=== PATIENT | female | born 1965 | race Caucasian/White ===

== ENCOUNTER 2021-08-06 20:34 | Emergency (ER) | payer OTHER ==
[~2021-08-06] VITALS: Ht 165.1 cm; Wt 122.5 kg
[2021-08-06] MEDS ORDERED: PAIN RELIEF325 MG PO (22:37)
[2021-08-06] MEDS ORDERED: MINTOX PLUS TA1 EACH PO (22:38)
[2021-08-06] MEDS ORDERED: MAGNESIUM HYDROXIDE PO (22:38)
[2021-08-06] MEDS ORDERED: GENTLE LAXATIVE10 MG RECTAL (22:39)
[2021-08-06] MEDS ORDERED: DULCOLAX STOOL100 M1 RECTAL (22:40)
[2021-08-06] MEDS ORDERED: SENNA PLUS TAB1 EACH PO (22:41)
[2021-08-06] MEDS ORDERED: PYRIDOXINE HCL25 MG PO (22:42)
[2021-08-06] MEDS ORDERED: DETROL2 M1 PO (22:42)
[2021-08-06] MEDS ORDERED: TIZANIDINE HCL4 M2 PO (22:43)
[2021-08-06] MEDS ORDERED: THIAMINE PO (22:44)
[2021-08-06] MEDS ORDERED: PYRIDOXINE HCL50 MG PO (22:52)
[2021-08-06] MEDS ORDERED: NAPROSYN500 MG PO (22:53)
[2021-08-06] MEDS ORDERED: MELATONIN3 M1 PO (22:54)
[2021-08-06] MEDS ORDERED: LORATIDINE 10 M10 M1 PO (22:54)
[2021-08-06] MEDS ORDERED: LIDODERM1 EACH TOP (22:55)
[2021-08-06] MEDS ORDERED: VITAMIN D325 MC3 PO (22:56)
[2021-08-06] MEDS ORDERED: BACLOFEN 10MG T10 MG PO (22:56)
[2021-08-06] MEDS ORDERED: MIRALAX119 GM PO (22:57)
[2021-08-06] MEDS ORDERED: HYDROXYZINE HCL25 M2 PO (22:58)
[2021-08-06] MEDS ORDERED: APAP W/CODEINE1 TA2 PO (22:59)
[2021-08-06] MEDS ORDERED: GABAPENTIN600 M1 PO (22:59)
[2021-08-06] MEDS ORDERED: VITAMIN B-121000 MCG PO (22:59)
[2021-08-06] MEDS ORDERED: NEURONTIN100 MG PO (23:00)
[2021-08-06] MEDS ORDERED: HYDROCHLOROTHIA25 M1 PO (23:00)
[2021-08-06] MEDS ORDERED: FOLIC ACID1 MG PO ×2 (23:00→23:01)
[2021-08-06] MEDS ORDERED: CALMOSEPTINE O3.5 GM (23:01)
[2021-08-06] MEDS ORDERED: NICOTINE PATCH1 EAC3 PO (23:02)
[2021-08-06] MEDS ORDERED: MICONAZOLE NITR10 GM TOP (23:04)
[2021-08-06] MEDS ORDERED: PERCOCET 10-321 EAC1 PO (23:05)
[2021-08-06] MEDS ORDERED: LEXAPRO 10 MG T10 M2 PO (23:05)
[2021-08-06] MEDS ORDERED: VOLTAREN ARTHRI20 GM TOP (23:06)
[2021-08-06] MEDS ORDERED: FLOMAX0.4 MG PO (23:06)
[2021-08-06] MEDS ORDERED: URECHOLINE 10 M10 M1 PO (23:07)
[2021-08-06] MEDS ORDERED: AMOX TR-K CLV1 EAC4 PO (23:08)
[2021-08-06] MEDS ORDERED: LACTOBACILLUS PO (23:10)
[2021-08-06 23:43] VITALS: BP 137/77
== END 2021-08-06 23:44 | disposition home or self-care (01) ==
LOC: ER 20:34
DX: S81.012A Laceration without foreign body, left knee, initial encounter (principal); F41.9 Anxiety disorder, unspecified; G62.9 Polyneuropathy, unspecified; F12.90 Cannabis use, unspecified, uncomplicated; W22.8XXA Striking against or struck by other objects, initial encounter; Y93.89 Activity, other specified; Y92.89 Other specified places as the place of occurrence of the external cause; Y99.8 Other external cause status